=== PATIENT | female | born 2000 | race Caucasian/White ===

== ENCOUNTER 2024-06-26 20:59 | Emergency (ER) | payer BC, MEDICAID ==
[~2024-06-26] VITALS: Ht 160 cm; Wt 82.0 kg
[2024-06-26 21:17] VITALS: O2SAT 100
[2024-06-27] MEDS ORDERED: IBUP-2028 MT (01:23)
[2024-06-27] MEDS ORDERED: LIDO700A15 TP (01:23)
[2024-06-27] MEDS ORDERED: METH-653 MT (01:23)
[2024-06-27] MEDS: KETOROLAC 30MG/ML VIAL IM ONE (01:46)
[2024-06-27] MEDS: METHOCARBAMOL 750MG TABLET PO STA (01:46)
[2024-06-27 01:52] VITALS: BP 144/86; PULSE 93; RESP 16; TEMP 37.05852; O2SAT 100
== END 2024-06-27 01:59 | disposition home or self-care (01) ==
LOC: ER 20:59
DX: M25.512 Pain in left shoulder (principal); N92.6 Irregular menstruation, unspecified; Z79.899 Other long term (current) drug therapy
CPT/HCPCS: 99285; 93971; 71045; 81025; 73030; 73060; 93005; 96372; J1885

== ENCOUNTER 2025-03-26 18:45 | Emergency (ER) | payer BC, MEDICAID ==
[~2025-03-26] VITALS: Ht 162.6 cm; Wt 82.0 kg
[~2025-03-26 18:45] MED LIST: IBUP-2028 MT; LIDO-53 TP; METH-653 MT
[2025-03-26 18:57] VITALS: O2SAT 98
[2025-03-26 19:50] LABS: BASOPHILS % 0.3 % (0.0-2.0); EOSINOPHILS % 0.2 % (0.0-5.0); HEMATOCRIT. 37.2 % (36.0-48.0); HEMOGLOBIN. 12.2 g/dL (12.0-16.0); LYMPHOCYTES % 15.2 % (20.0-50.0); MEAN CORPUSCULAR HEMOGLOBIN 28.2 pg (28.0-32.0); MEAN CORPUSCULAR HGB CONC 32.8 g/dL (31.0-37.0); MEAN PLATELET VOLUME 7.7 fl (7.4-10.4); MONOCYTES % 6.7 % (2.0-8.0); NEUTROPHILS % 77.6 % (40.0-76.0); PLATELET 421 x1000/uL (130-400); RED BLOOD CELL COUNT 4.32 mill/uL (4.2-5.4); RED CELL DISTRIBUTION WIDTH 14.6 % (11.6-14.6)
[2025-03-26 19:57] LABS: CHLORIDE 102 mEq/L (98-107); POTASSIUM 3.4 mEq/L (3.5-5.1); SODIUM 137 mEq/L (136-145)
[2025-03-26 19:58] LABS: CARBON DIOXIDE 27 mEq/L (21-32)
[2025-03-26 19:59] LABS: CALCIUM 9.4 mg/dL (8.7-10.4)
[2025-03-26 20:03] LABS: CREATININE 0.9 mg/dL (0.6-1.0); GLUCOSE 104 mg/dL (70-105)
[2025-03-26 20:04] LABS: UREA NITROGEN BLOOD 11 mg/dL (9-23)
[2025-03-26 20:14] LABS: GLUCOSE URINE NEGATIVE (NEGATIVE); KETONES URINE NEGATIVE (NEGATIVE); LEUKOCYTE ESTERASE URINE 2+ (NEGATIVE); NITRITE URINE NEGATIVE (NEGATIVE); OCCULT BLOOD URINE 2+ (NEGATIVE); PROTEIN URINE 1+ (NEGATIVE); SPECIFIC GRAVITY URINE 1.009 (1.005-1.030); UROBILINOGEN URINE 0.2 E.U./dL (0.2-1.0)
[2025-03-26 20:14] LABS: HCG SCREEN NEGATIVE
[2025-03-26 20:53] LABS: COLOR URINE STRAW (YELLOW)
[2025-03-26 20:56] LABS: BACTERIA URINE TRACE; RBC URINE NONE SEEN /hpf (0-2); SQUAMOUS EPITHELIAL CELL URINE 1+ /lpf (RARE/1+)
[2025-03-26 20:59] LABS: CLARITY URINE SL HAZY (CLEAR)
[2025-03-26 21:00] LABS: WBC URINE 15-25 /hpf (0-2)
[2025-03-26] MEDS ORDERED: NITR100C MT (22:28)
[2025-03-26 22:33] VITALS: BP 133/86; PULSE 108; RESP 18; TEMP 37; O2SAT 100
== END 2025-03-26 22:34 | disposition home or self-care (01) ==
LOC: ER 18:45
DX: N39.0 Urinary tract infection, site not specified (principal)
CPT/HCPCS: 36415; 80048; 81003; 84703; 85025; 87077; 87186; 99283